=== PATIENT | male | born 1950 | race Caucasian/White ===

== ENCOUNTER 2016-08-18 13:57 | Emergency (ER) | payer MEDICARE, OTHER ==
[~2016-08-18 13:57] MED LIST: Sodium Chloride 0.9% 1,000 ML BAG ONE
[2016-08-18 15:21] LABS: ALT (SGPT) 18 U/L (0-55); AST (SGOT) 15 U/L (5-34); Albumin 5.1 g/dL (3.4-4.8); Alkaline Phosphatase 83 U/L (40-150); Amylase 86 U/L (25-125); Anion Gap 19 mmol/L (10-20); BUN (Urea Nitrogen) 18 mg/dL (8.4-25.7); Bilirubin, Total 0.7 mg/dL (0.2-1.2); Calc. Creatinine Clearance 0 mL/min (70-130); Calcium 10.1 mg/dL (7.8-10.44); Carbon Dioxide 21 mmol/L (23-31); Chloride 107 mmol/L (98-107); Estimated GFR-MDRD 73; Glucose 132 mg/dL (80-115); Lipase 18 U/L (8-78); Potassium 3.3 mmol/L (3.5-5.1); Protein, Total 8.1 g/dL (5.8-8.1); Sodium 144 mmol/L (136-145)
[2016-08-18] MEDS ORDERED: Promethazine HCl 25 MG/ML VIAL ONE ×2 (15:21→16:46)
[2016-08-18] MEDS ORDERED: Ondansetron HCl/PF 4 MG/2 ML Vial ONE ×2 (15:21→16:46)
[2016-08-18 15:46] LABS: Band 4 % (5-11); Eosinophils 1 % (0-10); Hemoglobin 14.4 g/dL (14.0-18.0); Lymphocytes 14 % (21-51); MDiff Complete? YES; Mean Corpuscular HGB CONC 34.7 g/dL (32.0-36.0); Mean Corpuscular Hemoglobin 30.7 pg (27.0-31.0); Mean Corpuscular Volume 88.6 fl (80.0-94.0); Mean Platelet Volume 8.1 fL (7.4-10.4); Monocytes 13 % (0-10); Neutrophil 69 % (42-75); Platelet Count 207 thou/uL (130-400); RBC Distribution Width 11.8 % (11.5-14.5); Red Blood Cell (RBC) Count 4.71 mill/uL (4.70-6.10)
[2016-08-18 17:35] LABS: Blood, Urine Negative (Negative); Glucose, Urine (Dipstick) Negative (Negative); Leukocyte Small (Negative); Nitrite Negative (Negative); Protein, Urine (Dipstick) Trace mg/dL (Neg-Trace); Urobilinogen 0.2 mg/dL (0.2-1.0); pH, Urine 8.5 (5.0-9.0)
[2016-08-18 17:41] LABS: Bilirubin Positive (Negative); Icto Positive (Negative)
[2016-08-18 17:43] LABS: RBC/HPF 0-3 HPF (0-3)
[2016-08-18 17:44] LABS: Bacteria/HPF 2+ HPF (None Seen); Clarity Hazy (Clear)
[2016-08-18] MEDS ORDERED: Metoclopramide HCl 10 MG/2 ML VIAL ONE (19:26)
== END 2016-08-18 22:00 | disposition home or self-care (01) ==
LOC: MADERS 13:57
DX: N39.0 Urinary tract infection, site not specified (principal); E86.0 Dehydration; E78.5 Hyperlipidemia, unspecified; I10 Essential (primary) hypertension; Z79.82 Long term (current) use of aspirin; Z79.899 Other long term (current) drug therapy
CPT/HCPCS: 80053; 81001; 82150; 83605; 83690; 84443; 85025; 86140; 87077; 87086; 87186; 93005; 96361; 96365; 96375; 96376; J1956; J2405; J2550; J2765; J7050

== ENCOUNTER 2019-09-03 08:03 | Emergency (ER) | payer MEDICARE, OTHER ==
[2019-09-03 09:50] LABS: Hemoglobin 14.7 g/dL (14.0-18.0); Manual Diff?? YES; Mean Corpuscular HGB CONC 33.8 g/dL (32.0-36.0); Mean Corpuscular Hemoglobin 29.8 pg (27.0-31.0); Mean Corpuscular Volume 88.2 fL (78.0-98.0); Platelet Count 197 thou/uL (130-400); Red Blood Cell (RBC) Count 4.93 mill/uL (4.70-6.10); White Blood Cell (WBC) Count 12.6 thou/uL (4.8-10.8)
--- NOTE | 2019-09-03 09:50 | RAD ---
EXAM: CHEST ONE VIEW HISTORY: Fever COMPARISON: None FINDINGS: The cardiac silhouette and pulmonary vasculature is within normal limits. Left lateral costophrenic a ngle is excluded from view. Lungs are otherwise clear. Eventration right hemidiaphragm is present. The osseous structures are intact. Vascular calcifications are seen in the aortic arch. IMPRESSION: No acute cardiopulmonary process.
[2019-09-03 09:51] LABS: MDiff Complete? YES
[2019-09-03 09:52] LABS: Neutrophil 82 % (42-75)
[2019-09-03 09:53] LABS: Anisocytosis SLIGHT = 6-15 cells (100X) (0-5/hpf); Lymphocytes 16 % (21-51); Monocytes 2 % (0-10); Platelet Morphology Comment Appears Adequate
[2019-09-03 09:56] LABS: ALT (SGPT) 62 U/L (8-55); AST (SGOT) 37 U/L (5-34); Albumin 4.5 g/dL (3.4-4.8); Alkaline Phosphatase 66 U/L (40-110); Anion Gap 18 mmol/L (10-20); BUN (Urea Nitrogen) 31 mg/dL (8.4-25.7); Bilirubin, Total 0.7 mg/dL (0.2-1.2); Calc. Creatinine Clearance 0 mL/min (70-130); Calcium 8.8 mg/dL (7.8-10.44); Carbon Dioxide 20 mmol/L (23-31); Chloride 109 mmol/L (98-107); Estimated GFR-MDRD 60; Globulin 3.1 g/dL (2.4-3.5); Glucose 125 mg/dL (80-115); Protein, Total 7.6 g/dL (5.8-8.1); Sodium 144 mmol/L (136-145)
[2019-09-03 09:58] LABS: Bilirubin Negative (Negative); Blood, Urine Small (Negative); Clarity Clear (Clear); Glucose, Urine (Dipstick) Negative (Negative); Leukocyte Negative (Negative); Nitrite Negative (Negative); Protein, Urine (Dipstick) 100 mg/dL (Neg-Trace); Urobilinogen 0.2 mg/dL (Less than 2)
[2019-09-03 10:16] LABS: Bacteria/HPF Rare-Few HPF (None Seen); Squamous Epithelial 0-3 HPF (0-3); WBC/HPF 0-3 HPF (0-3)
[2019-09-03] MEDS ORDERED: Cefepime 2 GM VIAL ONE (10:19)
[2019-09-03] MEDS ORDERED: Enoxaparin Sodium 80 MG/0.8 ML SYRINGE ONE (10:19)
[2019-09-03] MEDS ORDERED: Aspirin Chewable 81 MG TAB ONE (10:19)
[2019-09-04 17:13] LABS: SARS-CoV-2 MS2 Positive; SARS-CoV-2 N Gene Negative; SARS-CoV-2 S Gene Negative; SARS-CoV-2 orf1ab Negative
== END 2019-09-03 11:05 | disposition short-term general hospital (02) ==
LOC: MADERS 08:03
DX: I21.4 Non-ST elevation (NSTEMI) myocardial infarction (principal); E78.5 Hyperlipidemia, unspecified; E78.00 Pure hypercholesterolemia, unspecified; Z79.899 Other long term (current) drug therapy
CPT/HCPCS: 71045; 80053; 82553; 83605; 83880; 84484; 85025; 87040; 87804 ×2; 93005; U0003; 81003; 81015; 87635; 96365; 96372; J0692; J1650; J7050

== ENCOUNTER 2023-05-29 16:26 | Emergency (ER) | payer OTHER ==
[2023-05-29 17:31] LABS: SARS-CoV-2 NAA Rapid Test Not Detected (NotDetected)
[2023-05-29 17:38] LABS: #Basophils 0.1 thou/uL (0.0-0.2); #Neutrophils 15.8 thou/uL (1.40-6.50); %Basophils 0.3 % (0.0-1.0); %Lymphocytes 10.6 % (21.0-51.0); %Monocytes 5.3 % (0.0-10.0); %Neutrophils 83.7 % (42.0-75.0); Hematocrit 41.8 % (42.0-52.0); Hemoglobin 13.5 g/dL (14.0-18.0); Mean Corpuscular HGB CONC 32.4 g/dL (32.0-36.0); Mean Corpuscular Hemoglobin 29.4 pg (27.0-31.0); Mean Corpuscular Volume 90.8 fl (78.0-98.0); Mean Platelet Volume 10.3 fL (7.4-10.4); Platelet Count 125 10x3/uL (130-400); RBC Distribution Width 14.6 % (11.5-14.5); White Blood Cell (WBC) Count 18.8 10x3/uL (4.8-10.8)
[2023-05-29 17:54] LABS: INR-International Normal Ratio 1.2; PTT 34.2 sec (22.9-36.1); Prothrombin Time 15.6 sec (12.0-14.7)
[2023-05-29 17:57] LABS: ALT (SGPT) 24 U/L (8-55); AST (SGOT) 17 U/L (5-34); Albumin 4.8 g/dL (3.4-4.8); Alkaline Phosphatase 56 U/L (40-110); Anion Gap 18 mmol/L (10-20); BUN (Urea Nitrogen) 58 mg/dL (8.4-25.7); Bilirubin, Total 1.1 mg/dL (0.2-1.2); CK (CPK) 93 U/L (30-200); Calc. Creatinine Clearance 0 mL/min (70-130); Calcium 9.7 mg/dL (7.8-10.44); Carbon Dioxide 27 mmol/L (23-31); Chloride 99 mmol/L (98-107); Estimated GFR 36; Globulin 3.2 g/dL (2.4-3.5); Glucose 113 mg/dL (83-110); Lipase 264 U/L (8-78); Magnesium 2.1 mg/dL (1.6-2.6); Potassium 3.3 mmol/L (3.5-5.1); Sodium 141 mmol/L (136-145)
[2023-05-29 18:23] LABS: Critical Call Chem Troponin I NUR.JP8@1822; Troponin I 0.253 ng/mL (< 0.028)
[2023-05-29] MEDS ORDERED: Potassium Chloride 20 MEQ TAB ONE (18:45)
[2023-05-29] MEDS ORDERED: Nitroglycerin 0.4 MG TAB 1 EACH ONE (18:51)
[2023-05-29] MEDS ORDERED: Mag-Al Plus 1200/1200/120 MG (30 mL) UDCUP ONE (18:59)
[2023-05-29] MEDS ORDERED: Lidocaine 2% Viscous 100 ML BOTTLE ONE ×2 (19:00→19:01)
[2023-05-29 19:05] LABS: Bilirubin Negative (Negative); Blood, Urine Trace (Negative); Glucose, Urine (Dipstick) Negative (Negative); Ketone, Urine Negative (Negative); Leukocyte Negative (Negative); Nitrite Negative (Negative); Protein, Urine (Dipstick) 30 mg/dL (Neg-Trace); Specific Gravity, Urine 1.015 (1.005-1.030); Urobilinogen 0.2 mg/dL (Less than 2)
[2023-05-29 19:07] LABS: Clarity Hazy (Clear)
[2023-05-29] MEDS ORDERED: Nitroglycerin 2% Ointment 1 INCH/1 GM Packet ONE (19:07)
[2023-05-29] MEDS ORDERED: Pantoprazole 40 MG VIAL ONE (19:08)
[2023-05-29 19:10] LABS: Bacteria/HPF 1+ HPF (None Seen); CAUTI Indications for Culture Dysuria,urgency,freq; RBC/HPF 0-3 HPF (0-3); Squamous Epithelial 0-3 HPF (0-3); WBC/HPF 0-3 HPF (0-3)
[2023-05-29 19:11] LABS: Urine Culture Reflex No No
[2023-05-29] MEDS ORDERED: Metoprolol Tartrate 5 MG (5 mL) VIAL ONE (20:07)
[2023-05-29 21:10] LABS: Critical Call Chem Troponin I NUR.AID @ 2110; Troponin I 0.215 ng/mL (< 0.028)
== END 2023-05-29 20:54 | disposition short-term general hospital (02) ==
LOC: MADERS 16:26
DX: I21.4 Non-ST elevation (NSTEMI) myocardial infarction (principal); N17.9 Acute kidney failure, unspecified; I48.92 Unspecified atrial flutter; E87.6 Hypokalemia; I45.81 Long QT syndrome; K20.90 Esophagitis, unspecified without bleeding; I10 Essential (primary) hypertension; I48.91 Unspecified atrial fibrillation; K85.90 Acute pancreatitis without necrosis or infection, unspecified; D62 Acute posthemorrhagic anemia; E03.9 Hypothyroidism, unspecified; Z79.01 Long term (current) use of anticoagulants; Z79.899 Other long term (current) drug therapy
CPT/HCPCS: 36415; 71045; 80053; 81001; 82274; 82550; 83605; 83690; 83735; 84443; 84484; 85025; 85610; 85730; 86850; 86900; 86901; 87040; 93005; 94760; 96361; 96374; 96375; C9113